=== PATIENT | male | born 1955 | race Caucasian/White ===

== ENCOUNTER 2019-04-19 06:24 | Inpatient (IN) ==
[2019-04-19] MEDS ORDERED: Lidocaine -MPF 4% 5 ML AMPUL ONE (07:18)
[2019-04-19] MEDS ORDERED: *HR* Succinylcholine 200 MG/10 ML VIAL IVP ONE (07:22)
[2019-04-19] MEDS ORDERED: Lidocaine -MPF 2% 2 ML VIAL ONE (07:22)
[2019-04-19] MEDS ORDERED: Ondansetron 4 MG/2 ML VIAL ONE (07:22)
[2019-04-19] MEDS ORDERED: Dexamethasone 4 MG/ML VIAL ONE (07:22)
[2019-04-19] MEDS ORDERED: Clindamycin 900 MG/50 ML 900 MG/50 ML IV.SOLN IVPB ONE (07:22)
[2019-04-19] MEDS ORDERED: *HR* Propofol 200 MG/20 ML VIAL IVP ONE (07:23)
[2019-04-19] MEDS ORDERED: Ringers Solution, Lactated 1,000 ML IVC SCH (07:30)
[2019-04-19] MEDS ORDERED: *HR* Phenylephrine 10 MG/ML VIAL ONE (07:30)
[2019-04-19] MEDS ORDERED: *HR* Midazolam HCl 2 MG/2 ML VIAL ONE (07:32)
[2019-04-19] MEDS ORDERED: *HR* Remifentanil 1 MG VIAL IVP ONE (07:32)
[2019-04-19] MEDS ORDERED: *HR* FentaNYL (PF) 100 MCG/2 ML VIAL ONE (07:32)
[2019-04-19] MEDS ORDERED: Acetaminophen IV 1,000 MG/100 ML INFUS..BTL IVPB ONE (07:57)
[2019-04-19] MEDS ORDERED: Bacitracin 50,000 UNIT, Polymyxin B Sulfate 500,000 UNIT, Sodium Chloride IRRigation 1,... IR ONE (08:15)
[2019-04-19] MEDS ORDERED: *HR* Promethazine 25 MG/ML VIAL IVP PRN (08:22)
[2019-04-19] MEDS ORDERED: *HR* FentaNYL (PF) 100 MCG/2 ML VIAL IVP PRN (08:22)
[2019-04-19] MEDS ORDERED: Ondansetron 4 MG/2 ML VIAL IVP ONE (08:22)
[2019-04-19] MEDS ORDERED: *HR* Meperidine 25 MG/ML SYRINGE IVP PRN (08:22)
[2019-04-19] MEDS ORDERED: Morphine Sulfate 2 MG/ML SYRINGE IVP PRN (08:22)
[2019-04-19] MEDS ORDERED: *HR* Rocuronium Bromide 50 MG/5 ML VIAL ONE (09:29)
[2019-04-19] MEDS ORDERED: Neostigmine Methylsulfate 3 MG/3 ML SYRINGE ONE (11:16)
[2019-04-19] MEDS: *HR* HYDROmorphone PF 0.5 MG/0.5 ML SYRINGE IVP PRN ×5 (11:52→12:32)
[2019-04-19] MEDS ORDERED: Ondansetron 4 MG/2 ML VIAL IVP PRN (13:12)
[2019-04-19] MEDS ORDERED: *HR* OxyCODONE Immed Rel 5 MG TABLET PO PRN (13:12)
[2019-04-19] MEDS ORDERED: Fluticasone Propionate Nasal 50 MCG/SPRAY BOTTLE NS PRN (13:12)
[2019-04-19] MEDS ORDERED: *HR* HYDROcodone/Acet 5/325 mg TABLET PO PRN (13:12)
[2019-04-19] MEDS ORDERED: Naloxone 0.4 MG/ML INJ IVP PRN (13:12)
[2019-04-19] MEDS: Ringers Solution, Lactated 1,000 ML IVC SCH (13:54)
[2019-04-19] MEDS: Clindamycin 600 MG/50 ML 600 MG/50 ML IV.SOLN IVPB SCH ×2 (17:34→23:22)
[2019-04-19] MEDS: Apixaban 5 MG TABLET PO SCH (20:16)
[2019-04-20] MEDS: *HR* HYDROcodone/Acet 5/325 mg TABLET PO PRN ×4 (00:14→13:37)
[2019-04-20] MEDS: amLODIPine 5 MG TABLET PO SCH (08:38)
[2019-04-20] MEDS: lisinopriL 20 MG TABLET PO SCH (08:38)
[2019-04-20] MEDS: Multivit/Ca/Min/Fe/FA 1 TAB TABLET PO SCH (08:38)
[2019-04-20] MEDS: Aspirin Enteric Coated 81 MG Tablet PO SCH (08:39)
[2019-04-20] MEDS: Apixaban 5 MG TABLET PO SCH ×2 (08:39→20:17)
[2019-04-20] MEDS: HYDROcodone BIT/Homatropine 5 MG TABLET PO PRN ×2 (14:38→18:35)
[2019-04-21] MEDS: HYDROcodone BIT/Homatropine 5 MG TABLET PO PRN ×5 (03:00→21:24)
[2019-04-21] MEDS: Aspirin Enteric Coated 81 MG Tablet PO SCH (07:30)
[2019-04-21] MEDS: amLODIPine 5 MG TABLET PO SCH (07:31)
[2019-04-21] MEDS: Multivit/Ca/Min/Fe/FA 1 TAB TABLET PO SCH (07:31)
[2019-04-21] MEDS: lisinopriL 20 MG TABLET PO SCH (07:31)
[2019-04-21] MEDS: Apixaban 5 MG TABLET PO SCH ×2 (07:31→21:25)
[2019-04-21] MEDS: Acetaminophen 325 MG TABLET PO PRN ×2 (07:32→19:42)
[2019-04-21 08:52] LABS: Basophils # 0.1 K/mcL (0.0-0.2); Basophils % 0.5 %; Hemoglobin 15.8 g/dL (12.9-16.9); Immature Granulocytes % 0.5 % (0-4); Lymphocytes # 2.4 K/mcL (0.6-4.6); Lymphocytes % 15.8 %; Mean Corpuscular HGB Conc 35.1 g/dL (31.6-35.5); Mean Corpuscular Hemoglobin 31.4 pg (28.0-33.3); Mean Corpuscular Volume 89.5 fL (83.0-100.0); Mean Platelet Volume 14.4 fL (9.4-12.4); Monocytes # 1.6 K/mcL (0.0-1.3); Monocytes % 10.5 %; Neutrophils # 11.1 K/mcL (1.6-8.9); Platelet Count 121 K/mcL (140-400); Red Blood Count 5.03 M/mcL (4.19-5.50); Red Cell Distribution Width 11.9 % (11.5-14.5); Segmented Neutrophils % 72.7 %; White Blood Count 15.3 K/mcL (4.3-11.1)
[2019-04-21 08:54] LABS: BUN/Creatinine Ratio 15 (6-26); Blood Urea Nitrogen 16 mg/dL (8-23); Calcium 8.6 mg/dL (8.6-10.3); Carbon Dioxide 26 mEq/L (23-29); Chloride 105 mEq/L (98-107); Glucose 135 mg/dL (70-105); Osmolality,Calculated 291 (280-300); Potassium 3.8 mEq/L (3.5-5.1); Sodium 139 mEq/L (136-145); eGFR For African Americans > 60 (> 60); eGFR For Non-African Americans > 60 (> 60)
[2019-04-21 13:30] LABS: Bilirubin,Urine Negative (Negative); Blood,Urine Negative (Negative); Clarity,Urine Clear (Clear); Color,Urine Yellow (Yellow); Glucose,Urine (UA) Normal (Normal); Ketones,Urine Negative (Negative); Leukocyte Esterase,Urine Negative (Negative); Nitrite,Urine Negative (Negative); Protein,Urine Negative (Neg-Trace); Specific Gravity,Urine 1.019 (1.010-1.025); Urobilinogen,Urine Normal (Normal)
[2019-04-22] MEDS: HYDROcodone BIT/Homatropine 5 MG TABLET PO PRN ×5 (01:23→22:02)
[2019-04-22 05:32] LABS: Basophils % 0.5 %; Red Cell Distribution Width 11.6 % (11.5-14.5)
[2019-04-22 05:34] LABS: Basophils # 0.1 K/mcL (0.0-0.2); Eosinophils % 0.3 %; Hematocrit 42.8 % (37.5-50.1); Hemoglobin 14.7 g/dL (12.9-16.9); Immature Granulocytes % 0.5 % (0-4); Immature Platelets 19.5 % (1.1-6.1); Lymphocytes # 2.2 K/mcL (0.6-4.6); Lymphocytes % 16.9 %; Mean Corpuscular HGB Conc 34.3 g/dL (31.6-35.5); Mean Corpuscular Hemoglobin 30.4 pg (28.0-33.3); Mean Corpuscular Volume 88.4 fL (83.0-100.0); Mean Platelet Volume 14.6 fL (9.4-12.4); Monocytes # 1.2 K/mcL (0.0-1.3); Monocytes % 9.1 %; Neutrophils # 9.3 K/mcL (1.6-8.9); Platelet Count 105 K/mcL (140-400); Red Blood Count 4.84 M/mcL (4.19-5.50); Segmented Neutrophils % 72.7 %; White Blood Count 12.8 K/mcL (4.3-11.1)
[2019-04-22 05:44] LABS: BUN/Creatinine Ratio 13 (6-26); Blood Urea Nitrogen 14 mg/dL (8-23); Calcium 8.2 mg/dL (8.6-10.3); Carbon Dioxide 26 mEq/L (23-29); Chloride 106 mEq/L (98-107); Glucose 143 mg/dL (70-105); Osmolality,Calculated 287 (280-300); Potassium 3.9 mEq/L (3.5-5.1); Sodium 137 mEq/L (136-145); eGFR For African Americans > 60 (> 60); eGFR For Non-African Americans > 60 (> 60)
[2019-04-22] MEDS: amLODIPine 5 MG TABLET PO SCH (07:31)
[2019-04-22] MEDS: Acetaminophen 325 MG TABLET PO PRN ×2 (07:31→18:09)
[2019-04-22] MEDS: Multivit/Ca/Min/Fe/FA 1 TAB TABLET PO SCH (07:31)
[2019-04-22] MEDS: Aspirin Enteric Coated 81 MG Tablet PO SCH (07:32)
[2019-04-22] MEDS: Pregabalin 50 MG CAPSULE PO SCH ×2 (07:32→22:02)
[2019-04-22] MEDS: Apixaban 5 MG TABLET PO SCH ×2 (07:32→22:02)
[2019-04-22] MEDS: lisinopriL 20 MG TABLET PO SCH (07:32)
[2019-04-22] MEDS ORDERED: Isovue-370 500 ML BOTTLE IVP ONE ×2 (16:12→18:33)
[2019-04-22 18:27] LABS: Adenovirus Not Detected (Not Detect); Bordetella Pertussis Not Detected (Not Detect); Chlamydophila pneumoniae Not Detected (Not Detect); Coronavirus 229E Not Detected (Not Detect); Coronavirus HKU1 Not Detected (Not Detect); Coronavirus NL63 Not Detected (Not Detect); Coronavirus OC43 Not Detected (Not Detect); Human Metapneumovirus Not Detected (Not Detect); Human Rhinovirus/Enterovirus Not Detected (Not Detect); Influenza A Subtype 2009 H1 Not Detected (Not Detect); Influenza B Not Detected (Not Detect); Mycoplasma pneumoniae Not Detected (Not Detect); Parainfluenza Virus 1 Not Detected (Not Detect); Parainfluenza Virus 2 Not Detected (Not Detect); Parainfluenza Virus 3 Not Detected (Not Detect); Parainfluenza Virus 4 Not Detected (Not Detect); Respiratory Syncytial Virus Not Detected (Not Detect)
[2019-04-23 01:33] LABS: Basophils % 0.4 %
[2019-04-23 01:34] LABS: Basophils # 0.1 K/mcL (0.0-0.2); Eosinophils # 0.1 K/mcL (0.0-0.6); Eosinophils % 0.9 %; Hematocrit 43.3 % (37.5-50.1); Hemoglobin 14.8 g/dL (12.9-16.9); Immature Granulocytes % 0.4 % (0-4); Immature Platelets 22.9 % (1.1-6.1); Lymphocytes # 2.7 K/mcL (0.6-4.6); Lymphocytes % 23.4 %; Mean Corpuscular HGB Conc 34.2 g/dL (31.6-35.5); Mean Corpuscular Hemoglobin 30.7 pg (28.0-33.3); Mean Corpuscular Volume 89.8 fL (83.0-100.0); Mean Platelet Volume 14.4 fL (9.4-12.4); Monocytes # 1.1 K/mcL (0.0-1.3); Monocytes % 9.2 %; Neutrophils # 7.7 K/mcL (1.6-8.9); Platelet Count 101 K/mcL (140-400); Red Blood Count 4.82 M/mcL (4.19-5.50); Red Cell Distribution Width 11.5 % (11.5-14.5); Segmented Neutrophils % 65.7 %; White Blood Count 11.7 K/mcL (4.3-11.1)
[2019-04-23 01:49] LABS: BUN/Creatinine Ratio 13 (6-26); Blood Urea Nitrogen 16 mg/dL (8-23); Calcium 8.3 mg/dL (8.6-10.3); Carbon Dioxide 28 mEq/L (23-29); Chloride 101 mEq/L (98-107); Glucose 174 mg/dL (70-105); Osmolality,Calculated 287 (280-300); Potassium 3.8 mEq/L (3.5-5.1); Sodium 136 mEq/L (136-145); eGFR For African Americans > 60 (> 60); eGFR For Non-African Americans 59 (> 60)
[2019-04-23 01:57] LABS: Platelet Estimate Decreased (Normal)
[2019-04-23] MEDS: HYDROcodone BIT/Homatropine 5 MG TABLET PO PRN ×3 (05:28→20:15)
[2019-04-23] MEDS: Aspirin Enteric Coated 81 MG Tablet PO SCH (09:04)
[2019-04-23] MEDS: Pregabalin 50 MG CAPSULE PO SCH ×2 (09:04→20:15)
[2019-04-23] MEDS: amLODIPine 5 MG TABLET PO SCH (09:04)
[2019-04-23] MEDS: Multivit/Ca/Min/Fe/FA 1 TAB TABLET PO SCH (09:05)
[2019-04-23] MEDS: lisinopriL 20 MG TABLET PO SCH (09:05)
[2019-04-23] MEDS: Apixaban 5 MG TABLET PO SCH ×2 (09:05→20:14)
[2019-04-23] MEDS: Acetaminophen 325 MG TABLET PO SCH ×2 (11:36→17:54)
[2019-04-24] MEDS: Acetaminophen 325 MG TABLET PO SCH ×5 (00:49→23:30)
[2019-04-24 02:49] LABS: Hematocrit 40.2 % (37.5-50.1); Hemoglobin 13.8 g/dL (12.9-16.9); Immature Platelets 24.7 % (1.1-6.1); Mean Corpuscular HGB Conc 34.3 g/dL (31.6-35.5); Mean Corpuscular Hemoglobin 30.8 pg (28.0-33.3); Mean Corpuscular Volume 89.7 fL (83.0-100.0); Platelet Count 107 K/mcL (140-400); Red Blood Count 4.48 M/mcL (4.19-5.50); Red Cell Distribution Width 11.6 % (11.5-14.5); White Blood Count 10.5 K/mcL (4.3-11.1)
[2019-04-24] MEDS: Apixaban 5 MG TABLET PO SCH ×2 (08:17→20:12)
[2019-04-24] MEDS: Multivit/Ca/Min/Fe/FA 1 TAB TABLET PO SCH (08:17)
[2019-04-24] MEDS: lisinopriL 20 MG TABLET PO SCH (08:17)
[2019-04-24] MEDS: HYDROcodone BIT/Homatropine 5 MG TABLET PO PRN ×3 (08:17→23:31)
[2019-04-24] MEDS: Pregabalin 50 MG CAPSULE PO SCH ×2 (08:18→20:12)
[2019-04-24] MEDS: Aspirin Enteric Coated 81 MG Tablet PO SCH (08:18)
[2019-04-24] MEDS: amLODIPine 5 MG TABLET PO SCH (08:18)
[2019-04-25] MEDS: HYDROcodone BIT/Homatropine 5 MG TABLET PO PRN ×3 (04:26→23:10)
[2019-04-25 04:45] LABS: Immature Granulocytes % 0.3 % (0-4); Lymphocytes % 24.6 %
[2019-04-25 04:46] LABS: Basophils # 0.1 K/mcL (0.0-0.2); Basophils % 0.7 %; Eosinophils # 0.3 K/mcL (0.0-0.6); Eosinophils % 2.9 %; Hematocrit 40.6 % (37.5-50.1); Hemoglobin 14.1 g/dL (12.9-16.9); Immature Platelets 22.9 % (1.1-6.1); Lymphocytes # 2.6 K/mcL (0.6-4.6); Mean Corpuscular HGB Conc 34.7 g/dL (31.6-35.5); Mean Corpuscular Hemoglobin 31.5 pg (28.0-33.3); Mean Corpuscular Volume 90.6 fL (83.0-100.0); Monocytes # 0.9 K/mcL (0.0-1.3); Monocytes % 8.3 %; Neutrophils # 6.8 K/mcL (1.6-8.9); Platelet Count 121 K/mcL (140-400); Red Blood Count 4.48 M/mcL (4.19-5.50); Red Cell Distribution Width 11.3 % (11.5-14.5); Segmented Neutrophils % 63.2 %; White Blood Count 10.7 K/mcL (4.3-11.1)
[2019-04-25 05:08] LABS: BUN/Creatinine Ratio 20 (6-26); Blood Urea Nitrogen 22 mg/dL (8-23); Calcium 8.6 mg/dL (8.6-10.3); Carbon Dioxide 25 mEq/L (23-29); Chloride 104 mEq/L (98-107); Glucose 123 mg/dL (70-105); Osmolality,Calculated 289 (280-300); Potassium 4.2 mEq/L (3.5-5.1); Sodium 137 mEq/L (136-145); eGFR For African Americans > 60 (> 60); eGFR For Non-African Americans > 60 (> 60)
[2019-04-25 05:18] LABS: Platelet Estimate Decreased (Normal)
[2019-04-25] MEDS: Acetaminophen 325 MG TABLET PO SCH ×4 (06:17→23:10)
[2019-04-25] MEDS: amLODIPine 5 MG TABLET PO SCH (08:54)
[2019-04-25] MEDS: lisinopriL 20 MG TABLET PO SCH (08:54)
[2019-04-25] MEDS: Pregabalin 50 MG CAPSULE PO SCH ×2 (08:54→19:54)
[2019-04-25] MEDS: Apixaban 5 MG TABLET PO SCH ×2 (08:54→19:54)
[2019-04-25] MEDS: Multivit/Ca/Min/Fe/FA 1 TAB TABLET PO SCH (08:55)
[2019-04-25] MEDS: Aspirin Enteric Coated 81 MG Tablet PO SCH (08:55)
[2019-04-25] MEDS: Ringers Solution, Lactated 1,000 ML IVC SCH ×3 (14:29→14:31)
[2019-04-26] MEDS: HYDROcodone BIT/Homatropine 5 MG TABLET PO PRN ×4 (03:16→19:41)
[2019-04-26] MEDS: Acetaminophen 325 MG TABLET PO SCH ×4 (05:31→23:17)
[2019-04-26] MEDS: lisinopriL 20 MG TABLET PO SCH (07:14)
[2019-04-26] MEDS: amLODIPine 5 MG TABLET PO SCH (07:14)
[2019-04-26] MEDS: Aspirin Enteric Coated 81 MG Tablet PO SCH (07:15)
[2019-04-26] MEDS: Multivit/Ca/Min/Fe/FA 1 TAB TABLET PO SCH (07:15)
[2019-04-26] MEDS: Apixaban 5 MG TABLET PO SCH ×2 (07:15→19:42)
[2019-04-26] MEDS: Pregabalin 50 MG CAPSULE PO SCH ×2 (07:16→23:15)
[2019-04-26] MEDS ORDERED: MOM Conc 10 ML UD.LIQ PO PRN (14:13)
[2019-04-26] MEDS ORDERED: Bisacodyl 10 MG RECTAL SUPPOSITORY RC PRN (15:26)
[2019-04-27 02:55] LABS: Hemoglobin 14.5 g/dL (12.9-16.9)
[2019-04-27 02:57] LABS: Hematocrit 42.7 % (37.5-50.1)
[2019-04-27 03:05] LABS: BUN/Creatinine Ratio 18 (6-26); Blood Urea Nitrogen 18 mg/dL (8-23); Calcium 8.6 mg/dL (8.6-10.3); Carbon Dioxide 25 mEq/L (23-29); Chloride 101 mEq/L (98-107); Glucose 124 mg/dL (70-105); Osmolality,Calculated 283 (280-300); Potassium 4.3 mEq/L (3.5-5.1); Sodium 135 mEq/L (136-145); eGFR For African Americans > 60 (> 60); eGFR For Non-African Americans > 60 (> 60)
[2019-04-27] MEDS: Acetaminophen 325 MG TABLET PO SCH ×4 (05:57→23:40)
[2019-04-27] MEDS: HYDROcodone BIT/Homatropine 5 MG TABLET PO PRN ×4 (05:57→23:41)
[2019-04-27] MEDS: lisinopriL 20 MG TABLET PO SCH (09:03)
[2019-04-27] MEDS: Multivit/Ca/Min/Fe/FA 1 TAB TABLET PO SCH (09:03)
[2019-04-27] MEDS: amLODIPine 5 MG TABLET PO SCH (09:04)
[2019-04-27] MEDS: Apixaban 5 MG TABLET PO SCH ×2 (09:04→21:12)
[2019-04-27] MEDS: Aspirin Enteric Coated 81 MG Tablet PO SCH (09:04)
[2019-04-27] MEDS: Pregabalin 50 MG CAPSULE PO SCH ×2 (09:04→21:13)
[2019-04-27 13:16] LABS: Bilirubin,Urine Negative (Negative); Blood,Urine Moderate (Negative); Clarity,Urine Cloudy (Clear); Color,Urine Yellow (Yellow); Glucose,Urine (UA) 100 mg/dL (Normal); Ketones,Urine Negative (Negative); Leukocyte Esterase,Urine Moderate (Negative); Nitrite,Urine Positive (Negative); PH,Urine 7.5 pH Units (5.0-8.0); Protein,Urine 30 mg/dL (Neg-Trace); Specific Gravity,Urine 1.023 (1.010-1.025); Urobilinogen,Urine Normal (Normal)
[2019-04-27 13:18] LABS: Bacteria,Urine Many per hpf (None-Few); Hyaline Casts,Urine Few per lpf (None-Few); RBC,Urine 0-3 per hpf (0-3); Squamous Epithelial Cell,Urine None Seen per lpf (None-Few); WBC,Urine 30-50 per hpf (0-3)
[2019-04-27] MEDS: Simethicone 80 MG TAB.CHEW PO SCH ×2 (13:22→21:12)
[2019-04-27] MEDS ORDERED: levoFLOXacin 500 MG/100 ML 500 MG/100 ML BAG IVPB SCH (14:00)
[2019-04-27 14:24] LABS: Basophils % 0.4 %; Hemoglobin 15.1 g/dL (12.9-16.9); Mean Platelet Volume 14.6 fL (9.4-12.4)
[2019-04-27 14:26] LABS: Basophils # 0.1 K/mcL (0.0-0.2); Eosinophils # 0.1 K/mcL (0.0-0.6); Eosinophils % 0.3 %; Hematocrit 42.6 % (37.5-50.1); Immature Granulocytes % 0.4 % (0-4); Immature Platelets 18.2 % (1.1-6.1); Lymphocytes % 5.9 %; Mean Corpuscular HGB Conc 35.4 g/dL (31.6-35.5); Mean Corpuscular Hemoglobin 31.6 pg (28.0-33.3); Mean Corpuscular Volume 89.1 fL (83.0-100.0); Monocytes # 1.2 K/mcL (0.0-1.3); Monocytes % 7.1 %; Neutrophils # 14.6 K/mcL (1.6-8.9); Platelet Count 181 K/mcL (140-400); Red Blood Count 4.78 M/mcL (4.19-5.50); Red Cell Distribution Width 11.1 % (11.5-14.5); Segmented Neutrophils % 85.9 %
[2019-04-28 01:37] LABS: Hematocrit 41.2 % (37.5-50.1); Immature Platelets 17.7 % (1.1-6.1); Mean Corpuscular Hemoglobin 30.3 pg (28.0-33.3); Mean Corpuscular Volume 89.2 fL (83.0-100.0); Mean Platelet Volume 14.6 fL (9.4-12.4); Red Blood Count 4.62 M/mcL (4.19-5.50); Red Cell Distribution Width 11.4 % (11.5-14.5); White Blood Count 18.2 K/mcL (4.3-11.1)
[2019-04-28 02:01] LABS: BUN/Creatinine Ratio 18 (6-26); Blood Urea Nitrogen 24 mg/dL (8-23); Calcium 8.4 mg/dL (8.6-10.3); Carbon Dioxide 22 mEq/L (23-29); Chloride 101 mEq/L (98-107); Glucose 204 mg/dL (70-105); Osmolality,Calculated 284 (280-300); Potassium 4.4 mEq/L (3.5-5.1); Sodium 132 mEq/L (136-145); eGFR For African Americans > 60 (> 60); eGFR For Non-African Americans 56 (> 60)
[2019-04-28] MEDS: Acetaminophen 325 MG TABLET PO SCH ×3 (05:52→18:09)
[2019-04-28] MEDS: Aspirin Enteric Coated 81 MG Tablet PO SCH (07:54)
[2019-04-28] MEDS: Pregabalin 50 MG CAPSULE PO SCH ×2 (07:54→20:43)
[2019-04-28] MEDS: Apixaban 5 MG TABLET PO SCH ×2 (07:58→20:44)
[2019-04-28] MEDS: amLODIPine 5 MG TABLET PO SCH (07:59)
[2019-04-28] MEDS: Simethicone 80 MG TAB.CHEW PO SCH ×2 (07:59→20:43)
[2019-04-28] MEDS: Multivit/Ca/Min/Fe/FA 1 TAB TABLET PO SCH (08:00)
[2019-04-28] MEDS: lisinopriL 20 MG TABLET PO SCH (08:00)
[2019-04-28] MEDS: HYDROcodone BIT/Homatropine 5 MG TABLET PO PRN ×3 (08:00→18:09)
[2019-04-28] MEDS: levoFLOXacin 750 MG/150 ML 750 MG/150 ML BAG IVPB SCH (14:11)
[2019-04-28] MEDS ORDERED: Ondansetron 4 MG/2 ML VIAL IVP ONE (18:04)
[2019-04-29] MEDS: Acetaminophen 325 MG TABLET PO SCH ×3 (00:33→13:58)
[2019-04-29] MEDS: HYDROcodone BIT/Homatropine 5 MG TABLET PO PRN ×3 (00:33→18:37)
[2019-04-29 05:50] LABS: Hemoglobin 12.7 g/dL (12.9-16.9)
[2019-04-29 05:51] LABS: Hematocrit 37.7 % (37.5-50.1); Immature Platelets 23.9 % (1.1-6.1); Mean Corpuscular HGB Conc 33.7 g/dL (31.6-35.5); Mean Corpuscular Hemoglobin 30.8 pg (28.0-33.3); Mean Corpuscular Volume 91.5 fL (83.0-100.0); Platelet Count 134 K/mcL (140-400); Red Blood Count 4.12 M/mcL (4.19-5.50); Red Cell Distribution Width 11.7 % (11.5-14.5); White Blood Count 16.7 K/mcL (4.3-11.1)
[2019-04-29 06:13] LABS: Calcium 8.2 mg/dL (8.6-10.3); Potassium 4.1 mEq/L (3.5-5.1)
[2019-04-29] MEDS: levoFLOXacin 750 MG/150 ML 750 MG/150 ML BAG IVPB SCH (08:09)
[2019-04-29] MEDS: Pregabalin 50 MG CAPSULE PO SCH (08:10)
[2019-04-29] MEDS: Aspirin Enteric Coated 81 MG Tablet PO SCH (08:11)
[2019-04-29] MEDS: amLODIPine 5 MG TABLET PO SCH (08:13)
[2019-04-29] MEDS: Multivit/Ca/Min/Fe/FA 1 TAB TABLET PO SCH (08:13)
[2019-04-29] MEDS: Apixaban 5 MG TABLET PO SCH (08:13)
[2019-04-29] MEDS: Simethicone 80 MG TAB.CHEW PO SCH (08:13)
[2019-04-29] MEDS: lisinopriL 20 MG TABLET PO SCH (08:14)
[2019-04-29 18:49] VITALS: BP 130/77
[2019-04-29] MEDS ORDERED: Acetaminophen 325 MG TABLET PO SCH (20:00)
== END 2019-04-29 19:09 | disposition short-term general hospital (02) | DRG 453 ==
LOC: SAMDAY 06:24 → 3NENU 13:11 → SUATTDRO 04-20 14:16
PROVIDERS: ADMIT Orthopaedic Surgery Orthopaedic Surgery of the Spine; ATTEND Internal Medicine